=== PATIENT | male | born 1960 | race Caucasian/White ===

== ENCOUNTER 2022-11-14 06:32 | Day surgery (SDC) | payer OTHER ==
[~2022-11-14] VITALS: Ht 190.5 cm; Wt 127.0 kg
[2022-11-14] MEDS ORDERED: LIDOCAINE 1% 500 MG/50 ML VIAL ONE (07:36)
[2022-11-14] MEDS ORDERED: fentaNYL citrate 0.05 MG/ML VIAL ONE (07:36)
== END 2022-11-14 09:11 | disposition home or self-care (01) ==
LOC: MDS 06:32 → MMU 06:53 → MDS 09:11
PROVIDERS: ATTEND Internal Medicine Gastroenterology
DX: K75.81 Nonalcoholic steatohepatitis (NASH) (principal); K21.9 Gastro-esophageal reflux disease without esophagitis; I10 Essential (primary) hypertension; E66.9 Obesity, unspecified; Z96.651 Presence of right artificial knee joint; Z79.82 Long term (current) use of aspirin; Z79.899 Other long term (current) drug therapy; Z68.34 Body mass index [BMI] 34.0-34.9, adult
CPT/HCPCS: 47000; 76942; J2001; Q0092; J3010

== ENCOUNTER 2023-09-11 06:20 | Day surgery (SDC) | payer OTHER ==
[~2023-09-11] VITALS: Ht 182.9 cm; Wt 128.4 kg
[2023-09-11] MEDS ORDERED: LIDOCAINE 1% 500 MG/50 ML VIAL ONE (07:32)
[2023-09-11] MEDS ORDERED: fentaNYL citrate 0.05 MG/ML VIAL ONE (07:34)
== END 2023-09-11 08:55 | disposition home or self-care (01) ==
LOC: MMU 06:20 → MDS 06:20 → MMU 06:21 → MDS 08:55
PROVIDERS: ATTEND Internal Medicine Gastroenterology
DX: K75.81 Nonalcoholic steatohepatitis (NASH) (principal); I10 Essential (primary) hypertension; K21.9 Gastro-esophageal reflux disease without esophagitis; E11.9 Type 2 diabetes mellitus without complications; F17.210 Nicotine dependence, cigarettes, uncomplicated; Z79.82 Long term (current) use of aspirin; Z79.899 Other long term (current) drug therapy
CPT/HCPCS: 47000; 76942; 82948; J2001; Q0092; J3010

== ENCOUNTER 2023-12-07 06:19 | Day surgery (SDC) | payer OTHER ==
[~2023-12-07] VITALS: Ht 194.3 cm; Wt 129.3 kg
[2023-12-07] MEDS ORDERED: fentaNYL citrate 0.05 MG/ML VIAL ONE (07:25)
[2023-12-07] MEDS: LIDOCAINE 2% 1000 MG/50 ML VIAL INJ ONE (07:45)
[2023-12-07] MEDS: MORPHINE SULFATE 2 MG/ML SYR IVP PRN (08:24)
[2023-12-07] MEDS ORDERED: MORPHINE SULFATE 4 MG/ML SYR ONE ×2 (08:27→09:09)
== END 2023-12-07 09:55 | disposition home or self-care (01) ==
LOC: MDS 06:19 → MMU 06:33 → MDS 09:55
PROVIDERS: ATTEND Internal Medicine Gastroenterology
DX: K75.81 Nonalcoholic steatohepatitis (NASH) (principal); I10 Essential (primary) hypertension; Z98.890 Other specified postprocedural states
CPT/HCPCS: 76705; J2001; J2270; J3010; Q0092